=== PATIENT | female | born 1985 | race Caucasian/White ===

== ENCOUNTER → 2018-04-10 | Outpatient (CLI) | payer BC ==
--- NOTE | 2018-04-10 13:40 | US ---
EXAMINATION TYPE: US transvaginal DATE OF EXAM: 04/10/2018 COMPARISON: NONE CLINICAL HISTORY: Z97.5 Presence of IUD. TECHNIQUE: Transvaginal (TV Date of LMP: 03/29/2018 EXAM MEASUREMENTS: Uterus: 6.9 x 3.6 x 4.4 cm Endometrial Stripe: 0.6 cm Right Ovary: 2.9 x 2.2 x 2.2 cm Left Ovary: 2.7 x 1.9 x 3.2 cm 1. Uterus: Anteverted wnl 2. Endometrium: wnl, IUD noted in place 3. Right Ovary: wnl 4. Left Ovary: wnl 5. Bilateral Adnexa: wnl 6. Posterior cul-de-sac: no free fluid IMPRESSION: IUD felt satisfactory in position.
== END | disposition home or self-care (01) ==
LOC: RADUSWWP 12:21
PROVIDERS: ATTEND Family Medicine
DX: Z30.431 Encounter for routine checking of intrauterine contraceptive device (principal)
CPT/HCPCS: 76830